=== PATIENT | male | born 1950 | race Caucasian/White ===

== ENCOUNTER → 2016-11-16 | Outpatient (CLI) | payer OTHER ==
[~2016-11-16] MED LIST: ASPI1CHW26; CALC-445 PO; CHOL1000 PO; FLUT0.0529 NAE; LFB/200 PO; LOSA50TA6 PO; LPT/40 PO; METO25TA3 PO; MULT-892 PO; MULTTAB PO; NITR0.4S UT; [UNRECOGNIZED DRUG - OTHER]
== END | disposition home or self-care (01) ==
LOC: C.LAB 11:12
PROVIDERS: ATTEND Urology
DX: R39.9 Unspecified symptoms and signs involving the genitourinary system (principal)